=== PATIENT | female | born 1955 ===

== ENCOUNTER 2017-09-15 12:10 | Emergency (ER) | payer OTHER ==
[~2017-09-15] VITALS: Ht 147.3 cm; Wt 63.5 kg
[2017-09-15] MEDS ORDERED: DIAZEPAM5 MG PO (18:09)
[2017-09-15] MEDS ORDERED: ZOFRAN4 MG PO (18:09)
[2017-09-15] MEDS ORDERED: MECLIZINE HCL25 MG PO (18:09)
== END 2017-09-15 19:22 | disposition home or self-care (01) ==
LOC: ER 12:10
DX: R42 Dizziness and giddiness (principal)